=== PATIENT | female | born 1960 | race Caucasian/White ===

== ENCOUNTER 2018-07-07 09:46 | Emergency (ER) | payer BC ==
[~2018-07-07] VITALS: Ht 172.7 cm; Wt 68.0 kg
--- NOTE | 2018-07-07 10:26 | PHYS DOC ---
Past Medical History Past Medical History: Depression, Migraines Alcohol Use: None Drug Use: None Adult General Chief Complaint Chief Complaint: HEADACHE HPI HPI Patient is a 57 year old female who presents with complaining of migraine headache. Patient states she woke up at 2 AM because of frontal and left temporal headache as a constant throbbing and pressure pain and rated her pain 9 /10. Patient complaining of nausea and photophobia and left facial around her mouth numbness. Patient states she took Excedrin Migraine without improvement of her pain. She denies fever and chills, neck pain, focal weakness. Patient states the pain is like her other migraine headache but she never had numbness of face with her episodes of headache. Review of Systems Review of Systems Constitutional: Denies fever or chills [] Eyes: Denies change in visual acuity, redness, or eye pain [] HENT: Denies nasal congestion or sore throat [] Respiratory: Denies cough or shortness of breath [] Cardiovascular: No additional information not addressed in HPI [] GI: Denies abdominal pain, nausea, vomiting, bloody stools or diarrhea [] : Denies dysuria or hematuria [] Musculoskeletal: Denies back pain or joint pain [] Integument: Denies rash or skin lesions [] Neurologic: Reports sensory change and headache, denies focal weakness. Endocrine: Denies polyuria or polydipsia [] All other systems were reviewed and found to be within normal limits, except as documented in this note. Current Medications Current Medications Current Medications Medications (Trade) Dose Ordered Sig/Kuldeep Start Time Stop Time Status Last Admin Dose Admin Diphenhydramine HCl (Benadryl) 50 mg 1X ONCE 07/07/18 10:30 07/07/18 10:31 DC 07/07/18 10:45 50 MG Ketorolac Tromethamine (Toradol 30mg Vial) 30 mg 1X ONCE 07/07/18 10:30 07/07/18 10:31 DC 07/07/18 10:45 30 MG Ondansetron HCl (Zofran) 4 mg 1X ONCE 07/07/18 10:30 07/07/18 10:31 DC 07/07/18 10:45 4 MG Sodium Chloride 1,000 ml @ 1,000 mls/hr 1X ONCE 07/07/18 10:30 07/07/18 11:29 DC 07/07/18 10:45 1,000 MLS/HR Allergies Allergies Allergies Coded Allergies Type Severity Reaction Last Updated Verified No Known Drug Allergies 07/07/18 No Physical Exam Physical Exam Constitutional: Well developed, well nourished, mild distress, non-toxic appearance. [] HENT: Normocephalic, atraumatic, bilateral external ears normal, oropharynx moist, no oral exudates, nose normal. [] Eyes: PERRLA, EOMI, conjunctiva normal, no discharge. [] Neck: Normal range of motion, no tenderness, supple, no stridor. [] Cardiovascular:Heart rate regular rhythm, no murmur [] Lungs & Thorax: Bilateral breath sounds clear to auscultation [] Abdomen: Bowel sounds normal, soft, no tenderness, no masses, no pulsatile masses. [] Skin: Warm, dry, no erythema, no rash. [] Back: No tenderness, no CVA tenderness. [] Extremities: No tenderness, no cyanosis, no clubbing, ROM intact, no edema. [] Neurologic: Alert and oriented X 3, normal motor function, normal sensory function, no focal deficits noted. [] Psychologic: Affect normal, judgement normal, mood normal. [] Current Patient Data Vital Signs Vital Signs Date Time Temp Pulse Resp B/P (MAP) Pulse Ox O2 Delivery O2 Flow Rate FiO2 07/07/18 10:50 64 97 07/07/18 10:00 97.8 18 121/55 (77) 97.8 Lab Values Laboratory Tests Test 07/07/18 10:17 White Blood Count 5.5 x10^3/uL (4.0-11.0) Red Blood Count 4.38 x10^6/uL (3.50-5.40) Hemoglobin 13.8 g/dL (12.0-15.5) Hematocrit 40.0 % (36.0-47.0) Mean Corpuscular Volume 91 fL (79-100) Mean Corpuscular Hemoglobin 32 pg (25-35) Mean Corpuscular Hemoglobin Concent 35 g/dL (31-37) Red Cell Distribution Width 13.3 % (11.5-14.5) Platelet Count 278 x10^3/uL (140-400) Neutrophils (%) (Auto) 61 % (31-73) Lymphocytes (%) (Auto) 28 % (24-48) Monocytes (%) (Auto) 8 % (0-9) Eosinophils (%) (Auto) 2 % (0-3) Basophils (%) (Auto) 1 % (0-3) Neutrophils # (Auto) 3.3 x10^3uL (1.8-7.7) Lymphocytes # (Auto) 1.5 x10^3/uL (1.0-4.8) Monocytes # (Auto) 0.5 x10^3/uL (0.0-1.1) Eosinophils # (Auto) 0.1 x10^3/uL (0.0-0.7) Basophils # (Auto) 0.1 x10^3/uL (0.0-0.2) Sodium Level 142 mmol/L (136-145) Potassium Level 3.9 mmol/L (3.5-5.1) Chloride Level 105 mmol/L (98-107) Carbon Dioxide Level 24 mmol/L (21-32) Anion Gap 13 (6-14) Blood Urea Nitrogen 8 mg/dL (7-20) Creatinine 0.9 mg/dL (0.6-1.0) Estimated GFR (Cockcroft-Gault) 64.1 BUN/Creatinine Ratio 9 (6-20) Glucose Level 96 mg/dL (70-99) Calcium Level 8.9 mg/dL (8.5-10.1) Total Bilirubin 0.8 mg/dL (0.2-1.0) Aspartate Amino Transferase (AST) 22 U/L (15-37) Alanine Aminotransferase (ALT) 34 U/L (14-59) Alkaline Phosphatase 70 U/L (46-116) Total Protein 7.2 g/dL (6.4-8.2) Albumin 3.8 g/dL (3.4-5.0) Albumin/Globulin Ratio 1.1 (1.0-1.7) Laboratory Tests 07/07/18 10:17 Laboratory Tests 07/07/18 10:17 EKG EKG [] Radiology/Procedures Radiology/Procedures [facility] [address] [place] [address] IMAGING REPORT Signed PATIENT: NGUYEN SANFORD ACCOUNT: [id number] : 1960 LOCATION: ER AGE: 57 SEX: F EXAM STATUS: REG ER ORD. PHYSICIAN: KELLY ONTIVEROS MD REASON: headache PROCEDURE: CT HEAD WO CONTRAST CT Head W/O Contrast: History: HEADACHE, MIGRAINE TODAY Comparison: none Axial images were obtained without contrast. The alejandro and white matter appears normal and symmetrical for the patients age. There is no mass effect, extraaxial fluid collections or hydrocephalus. There is no gross bleed. There is no focal loss of alejandro-white matter distinction to suggest acute ischemia, i.e. stroke. Impression: No acute findings. RS Compliance Statement: One or more of the following individualized dose reduction techniques were utilized for this examination: 1. Automated exposure control 2. Adjustment of the mA and/or kV according to patient size 3. Use of iterative reconstruction technique Electronically signed by: Lázaro Birmingham III, MD (07/07/2018 10:51 AM) [id number] DICTATED and SIGNED BY: LÁZARO BIRMINGHAM III, MD DATE: 07/07/18 105 Course & Med Decision Making Course & Med Decision Making Pertinent Labs and Imaging studies reviewed. (See chart for details) Evaluation of patient in ER showed 57-year-old female patient with history of migraine headaches presented with complaining of headache since this morning. Patient had unremarkable physical exam without neuro deficit even complaining of paresthesia in left side of her mouth. CT and labs was unremarkable. Patient felt better with IV fluid, Benadryl, Toradol and Zofran. Plan discharge patient home to diagnose of migraine headache. Dragon Disclaimer Dragon Disclaimer This electronic medical record was generated, in whole or in part, using a voice recognition dictation system. Departure Departure Impression: Primary Impression: Migraine headache with aura Disposition: HOME, SELF-CARE (at 1148) Condition: IMPROVED Patient Instructions: Migraine Headache, Nausea, Adult Additional Instructions: Drink plenty of liquids Follow-up with your primary care physician in 3-5 days Return to ER if not getting better Scripts Ondansetron Hcl (ZOFRAN) 4 Mg Tablet 1 TAB PO PRN Q6-8HRS for nausea, #12 TAB Prov: KELLY ONTIVEROS MD 07/07/18 Butalbital/Aspirin/Caffeine (FIORINAL 50-325-40 MG CAPSULE) 1 Each Capsule 1 EACH PO QID PRN for HEADACHE, #20 CAP Prov: KELLY ONTIVEROS MD 07/07/18 Problem Qualifiers Primary Impression: Migraine headache with aura Status migrainosus presence: without status migrainosus Intractability: not intractable Qualified Codes: G43.109 - Migraine with aura, not intractable, without status migrainosus KELLY ONTIVEROS MD Jul 07, 2018 10:26
[2018-07-07] MEDS ORDERED: diphenhydrAMINE 50 MG/ML VIAL IVP ONE (10:30)
[2018-07-07] MEDS ORDERED: ONDANSETRON PF 4 MG/2 ML VIAL. IV ONE (10:30)
[2018-07-07] MEDS ORDERED: IV NORMAL SALINE 1000ML BAG 1,000 ML IV ONE (10:30)
[2018-07-07] MEDS ORDERED: KETOROLAC 30 MG/ML VIAL. IV ONE (10:30)
[2018-07-07 10:38] LABS: BASO # 0.1 x10^3/uL (0.0-0.2); BASO % 1 % (0-3); CALCIUM 8.9 mg/dL (8.5-10.1); CREATININE 0.9 mg/dL (0.6-1.0); EOS # 0.1 x10^3/uL (0.0-0.7); EOS % 2 % (0-3); GFR 64.1; HEMOGLOBIN 13.8 g/dL (12.0-15.5); LYMPH # 1.5 x10^3/uL (1.0-4.8); LYMPH % 28 % (24-48); MEAN CORPUSCULAR HEMOGLOBIN 32 pg (25-35); MEAN CORPUSCULAR HGB CONC 35 g/dL (31-37); MEAN CORPUSCULAR VOLUME 91 fL (79-100); MONO # 0.5 x10^3/uL (0.0-1.1); MONO % 8 % (0-9); NEUT # 3.3 x10^3uL (1.8-7.7); NEUT % 61 % (31-73); PLATELET COUNT 278 x10^3/uL (140-400); POTASSIUM 3.9 mmol/L (3.5-5.1); RED BLOOD COUNT 4.38 x10^6/uL (3.50-5.40); RED CELL DISTRIBUTION WIDTH 13.3 % (11.5-14.5); WHITE BLOOD COUNT 5.5 x10^3/uL (4.0-11.0)
[2018-07-07 10:50] LABS: ALBUMIN 3.8 g/dL (3.4-5.0); ALBUMIN/GLOBULIN RATIO 1.1 (1.0-1.7); TOTAL BILIRUBIN 0.8 mg/dL (0.2-1.0); TOTAL PROTEIN 7.2 g/dL (6.4-8.2)
--- NOTE | 2018-07-07 10:53 | RAD ---
CT Head W/O Contrast: History: HEADACHE, MIGRAINE TODAY Comparison: none Axial images were obtained without contrast. The alejandro and white matter appears normal and symmetrical for the patients age. There is no mass effect, extraaxial fluid collections or hydrocephalus. There is no gross bleed. There is no focal loss of alejandro-white matter distinction to suggest acute ischemia, i.e. stroke. Impression: No acute findings. RS Compliance Statement: One or more of the following individualized dose reduction techniques were utilized for this examination: 1. Automated exposure control 2. Adjustment of the mA and/or kV according to patient size 3. Use of iterative reconstruction technique Electronically signed by: Rowdy Rajan III, MD (07/07/2018 10:51 AM) [id number]
[2018-07-07] MEDS ORDERED: ONDA4TAB7 PO (11:50)
[2018-07-07] MEDS ORDERED: BUTA1CAP31 PO (11:50)
[2018-07-07 12:00] VITALS: BP 104/55
== END 2018-07-07 12:15 | disposition home or self-care (01) ==
LOC: ER 09:46 → EDBD 09:46 → ER 12:15
DX: G43.109 Migraine with aura, not intractable, without status migrainosus (principal); F32.9 Major depressive disorder, single episode, unspecified
CPT/HCPCS: 36415; 70450; 80053; 85025; 96374; 96375; 99285; J1200; J1885; J2405; J7030

== ENCOUNTER 2018-08-18 20:37 | Inpatient (IN) | payer BC ==
[~2018-08-18] VITALS: Ht 170.2 cm; Wt 76.7 kg
[~2018-08-18 20:37] MED LIST: BUTA1CAP31 PO; ONDA4TAB7 PO
[2018-08-18] MEDS ORDERED: ONDANSETRON PF 4 MG/2 ML VIAL. IV ONE (21:15)
[2018-08-18] MEDS ORDERED: PROCHLORPERAZINE 10 MG/2 ML VIAL. IV ONE ×2 (21:15)
[2018-08-18] MEDS ORDERED: diphenhydrAMINE 50 MG/ML VIAL IVP ONE ×2 (21:15)
[2018-08-18 21:17] LABS: BASO # 0.1 x10^3/uL (0.0-0.2); BASO % 1 % (0-3); EOS # 0.1 x10^3/uL (0.0-0.7); EOS % 2 % (0-3); HEMATOCRIT 40.5 % (36.0-47.0); HEMOGLOBIN 13.7 g/dL (12.0-15.5); LYMPH # 2.7 x10^3/uL (1.0-4.8); LYMPH % 38 % (24-48); MEAN CORPUSCULAR HEMOGLOBIN 31 pg (25-35); MEAN CORPUSCULAR HGB CONC 34 g/dL (31-37); MEAN CORPUSCULAR VOLUME 93 fL (79-100); MONO # 0.6 x10^3/uL (0.0-1.1); MONO % 8 % (0-9); NEUT # 3.7 x10^3uL (1.8-7.7); NEUT % 52 % (31-73); PLATELET COUNT 281 x10^3/uL (140-400); RED BLOOD COUNT 4.38 x10^6/uL (3.50-5.40); RED CELL DISTRIBUTION WIDTH 13.7 % (11.5-14.5); WHITE BLOOD COUNT 7.2 x10^3/uL (4.0-11.0)
[2018-08-18 21:24] LABS: PROTHROMBIN TIME PATIENT 12.8 SEC (11.7-14.0)
[2018-08-18 21:25] LABS: CALCIUM 9.3 mg/dL (8.5-10.1); GFR 56.6; POTASSIUM 3.3 mmol/L (3.5-5.1)
[2018-08-18] MEDS ORDERED: IOHEXOL 350 MG/ML 100 ML VIAL. IV ONE (21:30)
[2018-08-18] MEDS ORDERED: CONTRAST GIVEN. MC PRN (21:30)
[2018-08-18 21:31] LABS: ALBUMIN 3.7 g/dL (3.4-5.0); ALBUMIN/GLOBULIN RATIO 1.3 (1.0-1.7); TOTAL BILIRUBIN 0.6 mg/dL (0.2-1.0); TOTAL PROTEIN 6.6 g/dL (6.4-8.2)
--- NOTE | 2018-08-18 22:01 | HP ---
ADMIT DATE: 08/18/2018 CHIEF COMPLAINT: Left-sided weakness, slurred speech, nausea, headache. HISTORY OF PRESENT ILLNESS: The patient is a pleasant middle-aged female who has chronic migraines and presented with some stroke symptoms. We are concerned she could be having an actual stroke. We did an initial CAT scan; it does not show any acute changes. We are going to get a CT angiography as well. She rates her symptoms at 10/10. She has associated nausea. I have discussed the case with ER physician. We are going to admit the patient and consult Neurology. PAST MEDICAL HISTORY: Chronic migraines. ALLERGIES: None. FAMILY HISTORY: Migraines. SOCIAL HISTORY: She is , does not drink, smoke or take drugs. MEDICATIONS: Reviewed, please refer to the MRAD. REVIEW OF SYSTEMS: GENERAL: No history of weight change, weakness or fevers. SKIN: No bruising, hair changes or rashes. EYES: No blurred, double or loss of vision. NOSE AND THROAT: No history of nosebleeds, hoarseness or sore throat. HEART: No history of palpitations, chest pain or shortness of breath on exertion. LUNGS: Denies cough, hemoptysis, wheezing or shortness of breath. GASTROINTESTINAL: She complains of nausea. GENITOURINARY: No history of frequency, urgency, hesitancy or nocturia. NEUROLOGIC: She complains of left-sided weakness, although it is improving. PSYCHIATRIC: No history of panic, anxiety or depression. ENDOCRINE: No history of heat or cold intolerance, polyuria or polydipsia. EXTREMITIES: Denies muscle weakness, joint pain, pain on walking or stiffness. PHYSICAL EXAMINATION: VITAL SIGNS: Temperature afebrile, pulse 98, respirations 18, blood pressure 133/90. GENERAL: She is awake, appears very nauseated. Her is present. HEART: Normal S1, S2. LUNGS: Clear to auscultation. ABDOMEN: Soft, positive bowel sounds. EXTREMITIES: Trace edema. SKIN: No rash. ENDOCRINE: No thyromegaly. LYMPHATICS: No cervical nodes. HEMATOPOIETIC: No bruising. PSYCHIATRIC: She is depressed. NEUROLOGICAL: She has left-sided weakness. LABORATORY DATA: Hematology is normal. Electrolytes are normal except for potassium of 3.3 and a glucose of 100. Her INR is 1. CT of the brain official report is pending, but by my eye does not show any acute changes. CT angiography of the brain is also pending. ASSESSMENT AND PLAN: Stroke symptoms, hypokalemia, nausea, possible migraine symptoms. The patient has been admitted. We are consulting Neurology. We will continue home meds. Await our CAT scan reports, reevaluate in the morning. For now, we will order PT, OT to begin tomorrow assuming she can participate and that she is improving. Full code. DVT prophylaxis. JEANE SANFORD DO DR: ZENON/yanique JOB#: [id number] / [id number]
--- NOTE | 2018-08-18 22:22 | PHYS DOC ---
Past Medical History Past Medical History: Depression, Migraines Past Surgical History: Appendectomy, Cholecystectomy, Hysterectomy, Tonsillecto my, Other Additional Past Surgical Histo: Left knee, back, right foot Alcohol Use: Occasionally Drug Use: None Adult General Chief Complaint Chief Complaint: NEURO SYMPTOMS/DEFICITS HPI HPI Patient is a 58 year old female brought in by ambulance with stroke alert apparently last seen normal she says symptoms started at 2 PM at the latest maybe earlier she was doing laundry she has had a headache throbbing left-sided head severe associated with nausea and photophobia similar to prior migraines for the last month but worse 3 days ago she has had CT scan she said she had an MRI/MRA last week at an outside facility but she does not recall the location I don't have access to that report at this time she said that there was a "questionable" finding. She does not have any more information on that at this time. Initially the paramedics said the last seen normal was at 7:50 PM but in fact that was when the came back in from home he was cleaning up after the report to in fact the time of onset was 2 PM according to the patient Review of Systems Review of Systems Cardiovascular: No additional information not addressed in HPI [] GI: Denies abdominal pain, nausea, vomiting, bloody stools or diarrhea [] : Denies dysuria or hematuria [] Musculoskeletal: Denies back pain or joint pain [] I All other systems were reviewed and found to be within normal limits, except as documented in this note. Current Medications Current Medications Current Medications Medications (Trade) Dose Ordered Sig/Kuldeep Start Time Stop Time Status Last Admin Dose Admin Aspirin (Children'S Aspirin) 324 mg 1X ONCE 08/18/18 22:15 08/18/18 22:16 UNV Diphenhydramine HCl (Benadryl) 25 mg 1X ONCE 08/18/18 21:15 08/18/18 21:18 DC Info (CONTRAST GIVEN -- Rx MONITORING) 1 each PRN DAILY PRN 08/18/18 21:30 08/20/18 21:29 Iohexol (Omnipaque 350 Mg/ml) 100 ml 1X ONCE 08/18/18 21:30 08/18/18 21:31 DC 08/18/18 21:33 100 ML Ondansetron HCl (Zofran) 4 mg 1X ONCE 08/18/18 21:15 08/18/18 21:18 DC Prochlorperazine Edisylate (Compazine) 10 mg 1X ONCE 08/18/18 21:15 08/18/18 21:18 DC Allergies Allergies Allergies Coded Allergies Type Severity Reaction Last Updated Verified meperidine Allergy Severe Anaphylaxis 08/18/18 Yes gabapentin Allergy Intermediate Hives 08/18/18 Yes Physical Exam Physical Exam Constitutional: Well developed, well nourished, no acute distress, non-toxic appearance. [] HENT: Normocephalic, atraumatic, bilateral external ears normal, oropharynx moist, no oral exudates, nose normal. [] Eyes: PERRLA, EOMI, conjunctiva normal, no discharge. [] Neck: Normal range of motion, no tenderness, supple, no stridor. [] Cardiovascular:Heart rate regular rhythm, no murmur [] Lungs & Thorax: Bilateral breath sounds clear to auscultation [] Abdomen: Bowel sounds normal, soft, no tenderness, no masses, no pulsatile masses. [] Skin: Warm, dry, no erythema, no rash. [] Back: No tenderness, no CVA tenderness. [] Extremities: No tenderness, no cyanosis, no clubbing, ROM intact, no edema. [] Neurologic: See stroke scale. Current Patient Data Vital Signs Vital Signs Date Time Temp Pulse Resp B/P (MAP) Pulse Ox O2 Delivery O2 Flow Rate FiO2 08/18/18 20:37 98.6 64 17 118/56 (76) 100 Room Air 98.6 Lab Values Laboratory Tests Test 08/18/18 20:49 White Blood Count 7.2 x10^3/uL (4.0-11.0) Red Blood Count 4.38 x10^6/uL (3.50-5.40) Hemoglobin 13.7 g/dL (12.0-15.5) Hematocrit 40.5 % (36.0-47.0) Mean Corpuscular Volume 93 fL (79-100) Mean Corpuscular Hemoglobin 31 pg (25-35) Mean Corpuscular Hemoglobin Concent 34 g/dL (31-37) Red Cell Distribution Width 13.7 % (11.5-14.5) Platelet Count 281 x10^3/uL (140-400) Neutrophils (%) (Auto) 52 % (31-73) Lymphocytes (%) (Auto) 38 % (24-48) Monocytes (%) (Auto) 8 % (0-9) Eosinophils (%) (Auto) 2 % (0-3) Basophils (%) (Auto) 1 % (0-3) Neutrophils # (Auto) 3.7 x10^3uL (1.8-7.7) Lymphocytes # (Auto) 2.7 x10^3/uL (1.0-4.8) Monocytes # (Auto) 0.6 x10^3/uL (0.0-1.1) Eosinophils # (Auto) 0.1 x10^3/uL (0.0-0.7) Basophils # (Auto) 0.1 x10^3/uL (0.0-0.2) Prothrombin Time 12.8 SEC (11.7-14.0) Prothrombin Time INR 1.0 (0.8-1.1) Sodium Level 141 mmol/L (136-145) Potassium Level 3.3 mmol/L (3.5-5.1) L Chloride Level 104 mmol/L (98-107) Carbon Dioxide Level 22 mmol/L (21-32) Anion Gap 15 (6-14) H Blood Urea Nitrogen 10 mg/dL (7-20) Creatinine 1.0 mg/dL (0.6-1.0) Estimated GFR (Cockcroft-Gault) 56.6 BUN/Creatinine Ratio 10 (6-20) Glucose Level 100 mg/dL (70-99) H Calcium Level 9.3 mg/dL (8.5-10.1) Total Bilirubin 0.6 mg/dL (0.2-1.0) Aspartate Amino Transferase (AST) 22 U/L (15-37) Alanine Aminotransferase (ALT) 36 U/L (14-59) Alkaline Phosphatase 73 U/L (46-116) Troponin I Quantitative < 0.017 ng/mL (0.000-0.055) Total Protein 6.6 g/dL (6.4-8.2) Albumin 3.7 g/dL (3.4-5.0) Albumin/Globulin Ratio 1.3 (1.0-1.7) Laboratory Tests 08/18/18 20:49 Laboratory Tests 08/18/18 20:49 EKG EKG []Normal sinus rhythm rate 61 no acute ischemic changes noted interpreted by me time of encounter Radiology/Procedures Radiology/Procedures [] Impressions: CT head negative acute. CT CT angiogram wet read from the radiologist Dr. Modi at 10:15 PM PACS is down was negative acute Course & Med Decision Making Course & Med Decision Making Pertinent Labs and Imaging studies reviewed. (See chart for details) []NIH stroke scale is a 7 however patient has a long history of migraine she is a 58-year-old female she's had migraine for 1 month worse for 3 days and now 6 hours of neurologic symptoms not a TPA candidate due to the time of onset. CT CT angiogram was negative for acute process according to the radiologist's final read is not in the system right now due to PACs failure I spoke with Dr. Velasco , patient has right face and then left arm and leg and also mild involvement of the right arm this does not really classify to a specific di stribution. Recommends aspirin admitted MRI in the morning I spoke with Dr. Lakhani as well who is seen this patient in the emergency room. I think is more likely to be migraine probably due to her previous history but we will admit for observation and further treatment as noted Dragon Disclaimer Dragon Disclaimer This electronic medical record was generated, in whole or in part, using a voice recognition dictation system. Departure Departure Impression: Primary Impression: Left arm weakness Additional Impression: Headache Disposition: ADMITTED INPATIENT Admitting Physician: JAQUAN Condition: STABLE Referrals: JELANI ONEAL MD (PCP) NIHSS Stroke Scale NIH Stroke Scale: NIH Stroke Scale Response (Comments) Value Level of Consciousness: 0 Alert/Responsive 0 LOC Questions: 0 Answers both correctly 0 LOC Commands: 0 Performs both tasks 0 Best Gaze: 0 Normal 0 Visual: 0 No visual loss 0 Facial Palsy: 3 Complete paralysis 3 Motor - Left Arm 1 Drifts, but can hold 1 Motor - Right Arm 1 Drifts but can hold 1 Motor - Left Leg 1 Drift but can hold 1 Motor: Right Leg 0 No drift 0 Limb Ataxia: 0 Absent 0 Sensory: 0 No loss 0 Best Language: 0 Normal 0 Dysathria: 1 Mild to moderate 1 Extinction and Inattention: 0 Normal 0 Total 7 Problem Qualifiers OTTO GODOY MD Aug 18, 2018 22:22
[2018-08-18] MEDS ORDERED: ASPIRIN CHEWABLE 81 MG TABLET. PO ONE (22:30)
[2018-08-18 22:45] LABS: BILIRUBIN,URINE NEGATIVE (NEG); CLARITY,URINE CLEAR; COLOR,URINE YELLOW; NITRITE,URINE NEGATIVE (NEG); PROTEIN,URINE NEGATIVE (NEG-TRACE); UROBILINOGEN,URINE 0.2 mg/dL (0.2 mg/dL)
[2018-08-18] MEDS ORDERED: PROCHLORPERAZINE 10 MG/2 ML VIAL. IV PRN (22:45)
[2018-08-18] MEDS ORDERED: ASPIRIN RECTAL 300 MG SUPP. PR ONE (22:45)
[2018-08-18 22:49] LABS: BACTERIA,URINE FEW /HPF (0-FEW); RBC,URINE 0 /HPF (0-2); WBC,URINE OCC /HPF (0-4)
[2018-08-18 22:50] LABS: SQUAMOUS EPITHELIAL CELL,UR FEW /LPF
[2018-08-19 00:05] VITALS: BP 99/44
[2018-08-19 03:46] VITALS: BP 90/37
--- NOTE | 2018-08-19 06:41 | EKG ---
[facility] [address] [place] [address] Test Date: 2018-08-18 Test Time: 20:53:54 Pat Name: NGUYEN SANFORD Department: Room: Gender: F [employer]: : 1960 Requested By: OTTO GODOY Order Number: [id number] Reading MD: Measurements Intervals [place] Rate: 61 P: 0 UT: 134 QRS: 2 QRSD: 86 T: 25 QT: 474 QTc: 484 Interpretive Statements SINUS RHYTHM PROLONGED QT NO SPECIFIC ECG ABNORMALITIES RI6.01 Unconfirmed report No previous ECG available for comparison
[2018-08-19 07:11] VITALS: BP 102/42
[2018-08-19] MEDS ORDERED: METOPROLOL SUCC 24HR ER 25 MG TAB.ER.24H. PO SCH (09:00)
--- NOTE | 2018-08-19 09:14 | NUR ---
Bedside Swallow Evaluation completed. Please refer to full report for additional details. Impressions: Functional oropharyngeal swallow w/o s/s aspiration for trials of thin liquids, puree and solids. Pt appears at low risk of aspiration for all consistencies of PO w/ general swallow precautions. Speech/language/cognition screen and appears generally WFL w/ pt able to recall 5 words immediately and delayed, follow complex directions, oriented x4. Recommendations: Regular diet w/ thin liquids. General swallow precautions. No additional ST services indicated at this time.
[2018-08-19] MEDS ORDERED: ONDA4TAB7 PO (09:25)
[2018-08-19] MEDS ORDERED: FLUO40CA2 PO (09:25)
[2018-08-19] MEDS ORDERED: BUTA1CAP57 PO (09:25)
--- NOTE | 2018-08-19 09:27 | RAD ---
PQRS Compliance Statement: One or more of the following individualized dose reduction techniques were utilized for this examination: 1. Automated exposure control 2. Adjustment of the mA and/or kV according to patient size 3. Use of iterative reconstruction technique CT angiogram head and neck with contrast. Clinical Indication: Slurred speech. Right face and left arm weakness. Comparison: CT head without contrast, earlier same day. Technique: Helical CT imaging from inferior to the aortic arch to the skull vertex is performed after 100 cc of Omnipaque [address] angiogram protocol. 3-D MIP reconstructions of the cervical carotid arteries and [place] are performed. PQRS Compliance Statement - Stenosis calculations for CT, MR and conventional angiography are based upon measurement of the distal ICA diameter in accordance with the NASCET methodology. Stenosis calculations for carotid ultrasound studies are derived from validated velocity criteria which are known to correlate with the NASCET methodology. Findings: Aortic arch branches are patent. Common carotid arteries are patent. Bifurcations are normal. Cervical internal carotid arteries are patent. Cervical vertebral arteries are patent. No evidence of dissection. Distal vertebral arteries are codominant. The basilar artery is patent. The posterior cerebral arteries are patent. Superior cerebellar arteries are patent. Distal internal carotid arteries are patent. Small caliber anterior communicating artery. The anterior circulation is intact. No focal stenosis or occlusion or intracranial aneurysm is identified. Dural venous sinuses are patent. No abnormal enhancement in the brain parenchyma. There is no cervical adenopathy. The upper lungs are clear. Cervical spine alignment is maintained. IMPRESSION: Normal CTA head and neck findings. Preliminary results called to Dr. Zapata in the ED at 10:13 PM. Electronically signed by: Virgilio Modi MD (08/19/2018 9:24 AM) [id number]
--- NOTE | 2018-08-19 09:30 | RAD ---
CT HEAD INDICATION: Code stroke, slurred speech COMPARISON: None Available. Exposure: One or more of the following individualized dose reduction techniques were utilized for this examination: 1. Automated exposure control 2. Adjustment of the mA and/or kV according to patient size 3. Use of iterative reconstruction technique TECHNIQUE: 5 mm contiguous axial images were obtained from the skull base to the vertex in both bone and soft tissue algorithm. Please note that this report was dictated the next day as the PACS system and the dictation system was down under downtime. Preliminary read was provided to the ordering physician immediately at the conclusion of the exam. FINDINGS: No abnormal attenuation within the brain parenchyma. No evidence of acute intracranial hemorrhage. No extra-axial fluid collections. No mass effect or midline shift. Ventricular size is appropriate. Basal cisterns are patent. No fractures identified.[place]-white differentiation is preserved.Globes and orbits are within normal limits. Paranasal sinuses and mastoid air cells are clear. IMPRESSION: No acute intracranial findings Report called at 9:00 PM to ordering physician. Electronically signed by: Johny Etienne MD (08/19/2018 9:27 AM) [place] [id number]
--- NOTE | 2018-08-19 09:49 | PDOC2 ---
NEUROLOGY CONSULT Date of Admission Date of Admission DATE: 08/19/18 TIME: 08:59 Reason for Consult Reason for Consult: stroke symptoms, migraine Referring Physician Referring Physician: Dr. Barcenas PCP: Dr. Dobbins History of Present Illness History of Present Illness The patient is a 58-year-old right-handed female brought in by ambulance with stroke alert. Symptoms started about 2 PM yesterday. She is had throbbing migraine type headaches for the past month. She was in [place] and to department a month ago and received a prescription for Fiorinal. She did have the same headache yesterday with nausea and photophonophobia and started noticing some numbness on the right side of the face, left arm, and weakness in the right arm and leg. She may have had some trouble speaking.NIH score was 7 due to facial weakness, bilateral arm drift, left leg drift, and dysarthria. I discussed the case with Dr. Haro and we agree that she was not an alteplase candidate because symptoms were not localizing and had started at 2 PM, nearly 6 hours before she presented to the emergency department. The patient is feeling fine today. She had MRI/MRA by her primary physician, Dr. Dobbins. She was told these were abnormal. I called Dr. 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 He was planning to do a CT angiogram. Past Medical History CENTRAL NERVOUS SYSTEM: Migraine Psych: Depression (Not currently) Past Surgical History Past Surgical History: Appendectomy, Cholecystectomy, Tonsillectomy, Hysterectomy, Other ( left knee, right foot) Family History Family History: No pertinent hx Social History Social History , business banking officer, rare alcohol, no tobacco Current Medications Current Medications Current Medications Diphenhydramine HCl (Benadryl) 25 mg 1X ONCE IVP Last administered on 08/18/18at 21:30; Start 08/18/18 at 21:15; Stop 08/18/18 at 21:18; Status DC Prochlorperazine Edisylate (Compazine) 5 mg 1X ONCE IV Last administered on 08/18/18at 21:29; Start 08/18/18 at 21:15; Stop 08/18/18 at 21:18; Status DC Ondansetron HCl (Zofran) 4 mg 1X ONCE IV ; Start 08/18/18 at 21:15; Stop 08/18/18 at 21:18; Status DC Iohexol (Omnipaque 350 Mg/ml) 100 ml 1X ONCE IV Last administered on 08/18/18at 21:33; Start 08/18/18 at 21:30; Stop 08/18/18 at 21:31; Status DC Prochlorperazine Edisylate (Compazine) 10 mg 1X ONCE IV ; Start 08/18/18 at 21:15; Stop 08/18/18 at 21:18; Status DC Diphenhydramine HCl (Benadryl) 25 mg 1X ONCE IVP ; Start 08/18/18 at 21:15; Stop 08/18/18 at 21:18; Status DC Info (CONTRAST GIVEN -- Rx MONITORING) 1 each PRN DAILY PRN MC SEE COMMENTS; Start 08/18/18 at 21:30; Stop 08/20/18 at 21:29 Aspirin (Children'S Aspirin) 324 mg 1X ONCE PO ; Start 08/18/18 at 22:30; Stop 08/18/18 at 22:31; Status DC Aspirin (Aspirin Rectal Supp) [address] Last administered on 08/18/18at 22:45; Start 08/18/18 at 22:45; Stop 08/18/18 at 22:46; Status DC Prochlorperazine Edisylate (Compazine) 10 mg PRN Q4HRS PRN IV VOMITING; Start 08/18/18 at 22:45 Metoprolol Succinate (Toprol Xl) 25 mg DAILY PO ; Start 08/19/18 at 09:00; Stop 08/22/18 at 09:00 Metoprolol Succinate (Toprol Xl) 50 mg DAILY PO ; Start 08/23/18 at 09:00 Active Scripts Active Zofran (Ondansetron Hcl) 4 Mg Tablet 1 Tab PO PRN Q6-8HRS Fiorinal 50-325-40 Mg Capsule (Butalbital/Aspirin/Caffeine) 1 Each Capsule 1 Each PO QID PRN Allergies Allergies: Coded Allergies: meperidine (Verified Allergy, Severe, Anaphylaxis , 08/18/18) gabapentin (Verified Allergy, Intermediate, Hives , 08/18/18) ROS Review of System Negative for fever, chills, weight loss, shortness of breath, chest pain, indigestion, hematochezia, melena, and dysuria. Full 14-point review of systems is negative. Physical Exam Physical Examination General: Well-developed, well-nourished white female in no acute distress HEENT: Normocephalic andatraumatic. Temporal arteriespulsatile and nontender. Neck: Supple without bruit, no meningismus Musculoskeletal: Stability:see neurologic. Gait exam:see neurologic. Tone:see neurologic.Strength:see neurologic. Neurological: Mental Status:intact, orientation, memory, attention span/concentration, language, fund of knowledge normal. Cranial Nerves:Pupils equal and reactive to light, extraocular movements areintact, visual smart are full to confrontation. Facial sensation is normal. There is no facial asymmetry. Vestibulo-ocular reflex is intact. Palate elevates and tongue protrudes in midline. All other cranial related problems are negative except as mentioned before.Reflexes:2+ and symmetric with flexor plantar responses. Motor:5/5 strength with normal tone and bulk. Coordination:Finger-nose finger and gbls-yq-wjfe testing are normal. Rapid alternating movements and fine finger movements are intact. Gait:Normal, including tandem. Sensory:Normal pinprick, vibration, light touch, proprioception. Vitals VITALS Vital Signs Date Time Temp Pulse Resp B/P (MAP) Pulse Ox O2 Delivery O2 Flow Rate FiO2 08/19/18 07:11 98.3 56 20 102/42 (62) 96 Room Air 98.3 Labs Labs Laboratory Tests Test 08/18/18 20:49 08/18/18 22:35 White Blood Count 7.2 x10^3/uL (4.0-11.0) Red Blood Count 4.38 x10^6/uL (3.50-5.40) Hemoglobin 13.7 g/dL (12.0-15.5) Hematocrit 40.5 % (36.0-47.0) Mean Corpuscular Volume 93 fL (79-100) Mean Corpuscular Hemoglobin 31 pg (25-35) Mean Corpuscular Hemoglobin Concent 34 g/dL (31-37) Red Cell Distribution Width 13.7 % (11.5-14.5) Platelet Count 281 x10^3/uL (140-400) Neutrophils (%) (Auto) 52 % (31-73) Lymphocytes (%) (Auto) 38 % (24-48) Monocytes (%) (Auto) 8 % (0-9) Eosinophils (%) (Auto) 2 % (0-3) Basophils (%) (Auto) 1 % (0-3) Neutrophils # (Auto) 3.7 x10^3uL (1.8-7.7) Lymphocytes # (Auto) 2.7 x10^3/uL (1.0-4.8) Monocytes # (Auto) 0.6 x10^3/uL (0.0-1.1) Eosinophils # (Auto) 0.1 x10^3/uL (0.0-0.7) Basophils # (Auto) 0.1 x10^3/uL (0.0-0.2) Prothrombin Time 12.8 SEC (11.7-14.0) Prothromb Time International Ratio 1.0 (0.8-1.1) Sodium Level 141 mmol/L (136-145) Potassium Level 3.3 mmol/L (3.5-5.1) Chloride Level 104 mmol/L (98-107) Carbon Dioxide Level 22 mmol/L (21-32) Anion Gap 15 (6-14) Blood Urea Nitrogen 10 mg/dL (7-20) Creatinine 1.0 mg/dL (0.6-1.0) Estimated GFR (Cockcroft-Gault) 56.6 BUN/Creatinine Ratio 10 (6-20) Glucose Level 100 mg/dL (70-99) Calcium Level 9.3 mg/dL (8.5-10.1) Total Bilirubin 0.6 mg/dL (0.2-1.0) Aspartate Amino Transf (AST/SGOT) 22 U/L (15-37) Alanine Aminotransferase (ALT/SGPT) 36 U/L (14-59) Alkaline Phosphatase 73 U/L (46-116) Troponin I Quantitative < 0.017 ng/mL (0.000-0.055) Total Protein 6.6 g/dL (6.4-8.2) Albumin 3.7 g/dL (3.4-5.0) Albumin/Globulin Ratio 1.3 (1.0-1.7) Urine Collection Type Unknown Urine Color Yellow Urine Clarity Clear Urine pH 8.0 Urine Specific [place] 1.020 Urine Protein Negative mg/dL (NEG-TRACE) Urine Glucose (UA) Negative mg/dL (NEG) Urine Ketones (Stick) Negative mg/dL (NEG) Urine Blood Negative (NEG) Urine Nitrite Negative (NEG) Urine Bilirubin Negative (NEG) Urine Urobilinogen Dipstick 0.2 mg/dL (0.2 mg/dL) Urine Leukocyte Esterase Negative (NEG) Urine RBC 0 /HPF (0-2) Urine WBC Occ /HPF (0-4) Urine Squamous Epithelial Cells Few /LPF Urine Bacteria Few /HPF (0-FEW) Urine Mucus Slight /LPF Laboratory Tests Test 08/18/18 20:49 08/18/18 22:35 White Blood Count 7.2 x10^3/uL (4.0-11.0) Red Blood Count 4.38 x10^6/uL (3.50-5.40) Hemoglobin 13.7 g/dL (12.0-15.5) Hematocrit 40.5 % (36.0-47.0) Mean Corpuscular Volume 93 fL (79-100) Mean Corpuscular Hemoglobin 31 pg (25-35) Mean Corpuscular Hemoglobin Concent 34 g/dL (31-37) Red Cell Distribution Width 13.7 % (11.5-14.5) Platelet Count 281 x10^3/uL (140-400) Neutrophils (%) (Auto) 52 % (31-73) Lymphocytes (%) (Auto) 38 % (24-48) Monocytes (%) (Auto) 8 % (0-9) Eosinophils (%) (Auto) 2 % (0-3) Basophils (%) (Auto) 1 % (0-3) Neutrophils # (Auto) 3.7 x10^3uL (1.8-7.7) Lymphocytes # (Auto) 2.7 x10^3/uL (1.0-4.8) Monocytes # (Auto) 0.6 x10^3/uL (0.0-1.1) Eosinophils # (Auto) 0.1 x10^3/uL (0.0-0.7) Basophils # (Auto) 0.1 x10^3/uL (0.0-0.2) Prothrombin Time 12.8 SEC (11.7-14.0) Prothromb Time International Ratio 1.0 (0.8-1.1) Sodium Level 141 mmol/L (136-145) Potassium Level 3.3 mmol/L (3.5-5.1) Chloride Level 104 mmol/L (98-107) Carbon Dioxide Level 22 mmol/L (21-32) Anion Gap 15 (6-14) Blood Urea Nitrogen 10 mg/dL (7-20) Creatinine 1.0 mg/dL (0.6-1.0) Estimated GFR (Cockcroft-Gault) 56.6 BUN/Creatinine Ratio 10 (6-20) Glucose Level 100 mg/dL (70-99) Calcium Level 9.3 mg/dL (8.5-10.1) Total Bilirubin 0.6 mg/dL (0.2-1.0) Aspartate Amino Transf (AST/SGOT) 22 U/L (15-37) Alanine Aminotransferase (ALT/SGPT) 36 U/L (14-59) Alkaline Phosphatase 73 U/L (46-116) Troponin I Quantitative < 0.017 ng/mL (0.000-0.055) Total Protein 6.6 g/dL (6.4-8.2) Albumin 3.7 g/dL (3.4-5.0) Albumin/Globulin Ratio 1.3 (1.0-1.7) Urine Collection Type Unknown Urine Color Yellow Urine Clarity Clear Urine pH 8.0 Urine Specific [place] 1.020 Urine Protein Negative mg/dL (NEG-TRACE) Urine Glucose (UA) Negative mg/dL (NEG) Urine Ketones (Stick) Negative mg/dL (NEG) Urine Blood Negative (NEG) Urine Nitrite Negative (NEG) Urine Bilirubin Negative (NEG) Urine Urobilinogen Dipstick 0.2 mg/dL (0.2 mg/dL) Urine Leukocyte Esterase Negative (NEG) Urine RBC 0 /HPF (0-2) Urine WBC Occ /HPF (0-4) Urine Squamous Epithelial Cells Few /LPF Urine Bacteria Few /HPF (0-FEW) Urine Mucus Slight /LPF Images Images CT angiogram head and neck with contrast. Clinical Indication: Slurred speech. Right face and left arm weakness. Comparison: CT head without contrast, earlier same day. Technique: Helical CT imaging from inferior to the aortic arch to the skull vertex is performed after 100 cc of Omnipaque [address] angiogram protocol. 3-D MIP reconstructions of the cervical carotid arteries and [place] are performed. PQRS Compliance Statement - Stenosis calculations for CT, MR and conventional angiography are based upon measurement of the distal ICA diameter in accordance with the NASCET methodology. Stenosis calculations for carotid ultrasound studies are derived from validated velocity criteria which are known to correlate with the NASCET methodology. Findings: Aortic arch branches are patent. Common carotid arteries are patent. Bifurcations are normal. Cervical internal carotid arteries are patent. Cervical vertebral arteries are patent. No evidence of dissection. Distal vertebral arteries are codominant. The basilar artery is patent. The posterior cerebral arteries are patent. Superior cerebellar arteries are patent. Distal internal carotid arteries are patent. Small caliber anterior communicating artery. The anterior circulation is intact. No focal stenosis or occlusion or intracranial aneurysm is identified. Dural venous sinuses are patent. No abnormal enhancement in the brain parenchyma. There is no cervical adenopathy. The upper lungs are clear. Cervical spine alignment is maintained. IMPRESSION: Normal CTA head and neck findings. CT HEAD INDICATION: Code stroke, slurred speech COMPARISON: None Available. Exposure: One or more of the following individualized dose reduction techniques were utilized for this examination: 1. Automated exposure control 2. Adjustment of the mA and/or kV according to patient size 3. Use of iterative reconstruction technique TECHNIQUE: 5 mm contiguous axial images were obtained from the skull base to the vertex in both bone and soft tissue algorithm. Please note that this report was dictated the next day as the PACS system and the dictation system was down under downtime. Preliminary read was provided to the ordering physician immediately at the conclusion of the exam. FINDINGS: No abnormal attenuation within the brain parenchyma. No evidence of acute intracranial hemorrhage. No extra-axial fluid collections. No mass effect or midline shift. Ventricular size is appropriate. Basal cisterns are patent. No fractures identified.[place]-white differentiation is preserved.Globes and orbits are within normal limits. Paranasal sinuses and mastoid air cells are clear. IMPRESSION: No acute intracranial findings Assessment/Plan Assessment/Plan Impression: She did not have a stroke or transient ischemic attack, symptoms and signs are non-localizing and entirely explainable by migraine phenomenon. Her outside MR angiogram raised the possibility of an aneurysm, the CT angiogram last night showed no such finding. Recommendations: MRI the brain No need for the rest of the stroke pathway as she did not have a stroke. Continue PRN Fiorinal at home Add metoprolol, 25 mg daily for 4 days and then 50 mg a day after that for migraine prevention, discussed side effects. Okay for discharge later today. I also discussed findings with Dr. Dobbins. Thank you for letting me help with the patient's care. THOM FIORE MD Aug 19, 2018 09:48
[2018-08-19] MEDS ORDERED: BUTALB/APAP/CAFEIN 50/325/40MG TABLET. PO PRN (10:15)
[2018-08-19] MEDS ORDERED: ONDANSETRON ODT 4 MG TAB.RAPDIS. PO PRN (10:15)
[2018-08-19] MEDS ORDERED: METO-239 PO (10:20)
[2018-08-19] MEDS ORDERED: METO50TA4 PO (10:20)
--- NOTE | 2018-08-19 10:25 | PDOC3 ---
Discharge Summary Visit Information Date of Admission: Aug 18, 2018 Date of Discharge: Aug 19, 2018 Admitting Diagnosis: sudden weakness, difficulty walking Final Diagnosis Stroke symptoms, not a CVA, hypokalemia, status migranosa - weakness from migrane Problems Medical Problems: (1) Headache Status: Acute (2) Left arm weakness Status: Acute Brief Hospital Course Allergies Allergies Coded Allergies Type Severity Reaction Last Updated Verified meperidine Allergy Severe Anaphylaxis 08/18/18 Yes gabapentin Allergy Intermediate Hives 08/18/18 Yes Vital Signs Vital Signs Date Time Temp Pulse Resp B/P (MAP) Pulse Ox O2 Delivery O2 Flow Rate FiO2 08/19/18 09:30 70 107/49 08/19/18 07:11 98.3 20 96 Room Air 98.3 Lab Results Laboratory Tests Test 08/18/18 20:49 08/18/18 22:35 White Blood Count 7.2 x10^3/uL (4.0-11.0) Red Blood Count 4.38 x10^6/uL (3.50-5.40) Hemoglobin 13.7 g/dL (12.0-15.5) Hematocrit 40.5 % (36.0-47.0) Mean Corpuscular Volume 93 fL (79-100) Mean Corpuscular Hemoglobin 31 pg (25-35) Mean Corpuscular Hemoglobin Concent 34 g/dL (31-37) Red Cell Distribution Width 13.7 % (11.5-14.5) Platelet Count 281 x10^3/uL (140-400) Neutrophils (%) (Auto) 52 % (31-73) Lymphocytes (%) (Auto) 38 % (24-48) Monocytes (%) (Auto) 8 % (0-9) Eosinophils (%) (Auto) 2 % (0-3) Basophils (%) (Auto) 1 % (0-3) Neutrophils # (Auto) 3.7 x10^3uL (1.8-7.7) Lymphocytes # (Auto) 2.7 x10^3/uL (1.0-4.8) Monocytes # (Auto) 0.6 x10^3/uL (0.0-1.1) Eosinophils # (Auto) 0.1 x10^3/uL (0.0-0.7) Basophils # (Auto) 0.1 x10^3/uL (0.0-0.2) Prothrombin Time 12.8 SEC (11.7-14.0) Prothromb Time International Ratio 1.0 (0.8-1.1) Sodium Level 141 mmol/L (136-145) Potassium Level 3.3 mmol/L (3.5-5.1) Chloride Level 104 mmol/L (98-107) Carbon Dioxide Level 22 mmol/L (21-32) Anion Gap 15 (6-14) Blood Urea Nitrogen 10 mg/dL (7-20) Creatinine 1.0 mg/dL (0.6-1.0) Estimated GFR (Cockcroft-Gault) 56.6 BUN/Creatinine Ratio 10 (6-20) Glucose Level 100 mg/dL (70-99) Calcium Level 9.3 mg/dL (8.5-10.1) Total Bilirubin 0.6 mg/dL (0.2-1.0) Aspartate Amino Transf (AST/SGOT) 22 U/L (15-37) Alanine Aminotransferase (ALT/SGPT) 36 U/L (14-59) Alkaline Phosphatase 73 U/L (46-116) Troponin I Quantitative < 0.017 ng/mL (0.000-0.055) Total Protein 6.6 g/dL (6.4-8.2) Albumin 3.7 g/dL (3.4-5.0) Albumin/Globulin Ratio 1.3 (1.0-1.7) Urine Collection Type Unknown Urine Color Yellow Urine Clarity Clear Urine pH 8.0 Urine Specific [place] 1.020 Urine Protein Negative mg/dL (NEG-TRACE) Urine Glucose (UA) Negative mg/dL (NEG) Urine Ketones (Stick) Negative mg/dL (NEG) Urine Blood Negative (NEG) Urine Nitrite Negative (NEG) Urine Bilirubin Negative (NEG) Urine Urobilinogen Dipstick 0.2 mg/dL (0.2 mg/dL) Urine Leukocyte Esterase Negative (NEG) Urine RBC 0 /HPF (0-2) Urine WBC Occ /HPF (0-4) Urine Squamous Epithelial Cells Few /LPF Urine Bacteria Few /HPF (0-FEW) Urine Mucus Slight /LPF Laboratory Tests Test 08/18/18 20:49 08/18/18 22:35 White Blood Count 7.2 x10^3/uL (4.0-11.0) Red Blood Count 4.38 x10^6/uL (3.50-5.40) Hemoglobin 13.7 g/dL (12.0-15.5) Hematocrit 40.5 % (36.0-47.0) Mean Corpuscular Volume 93 fL (79-100) Mean Corpuscular Hemoglobin 31 pg (25-35) Mean Corpuscular Hemoglobin Concent 34 g/dL (31-37) Red Cell Distribution Width 13.7 % (11.5-14.5) Platelet Count 281 x10^3/uL (140-400) Neutrophils (%) (Auto) 52 % (31-73) Lymphocytes (%) (Auto) 38 % (24-48) Monocytes (%) (Auto) 8 % (0-9) Eosinophils (%) (Auto) 2 % (0-3) Basophils (%) (Auto) 1 % (0-3) Neutrophils # (Auto) 3.7 x10^3uL (1.8-7.7) Lymphocytes # (Auto) 2.7 x10^3/uL (1.0-4.8) Monocytes # (Auto) 0.6 x10^3/uL (0.0-1.1) Eosinophils # (Auto) 0.1 x10^3/uL (0.0-0.7) Basophils # (Auto) 0.1 x10^3/uL (0.0-0.2) Prothrombin Time 12.8 SEC (11.7-14.0) Prothromb Time International Ratio 1.0 (0.8-1.1) Sodium Level 141 mmol/L (136-145) Potassium Level 3.3 mmol/L (3.5-5.1) Chloride Level 104 mmol/L (98-107) Carbon Dioxide Level 22 mmol/L (21-32) Anion Gap 15 (6-14) Blood Urea Nitrogen 10 mg/dL (7-20) Creatinine 1.0 mg/dL (0.6-1.0) Estimated GFR (Cockcroft-Gault) 56.6 BUN/Creatinine Ratio 10 (6-20) Glucose Level 100 mg/dL (70-99) Calcium Level 9.3 mg/dL (8.5-10.1) Total Bilirubin 0.6 mg/dL (0.2-1.0) Aspartate Amino Transf (AST/SGOT) 22 U/L (15-37) Alanine Aminotransferase (ALT/SGPT) 36 U/L (14-59) Alkaline Phosphatase 73 U/L (46-116) Troponin I Quantitative < 0.017 ng/mL (0.000-0.055) Total Protein 6.6 g/dL (6.4-8.2) Albumin 3.7 g/dL (3.4-5.0) Albumin/Globulin Ratio 1.3 (1.0-1.7) Urine Collection Type Unknown Urine Color Yellow Urine Clarity Clear Urine pH 8.0 Urine Specific [place] 1.020 Urine Protein Negative mg/dL (NEG-TRACE) Urine Glucose (UA) Negative mg/dL (NEG) Urine Ketones (Stick) Negative mg/dL (NEG) Urine Blood Negative (NEG) Urine Nitrite Negative (NEG) Urine Bilirubin Negative (NEG) Urine Urobilinogen Dipstick 0.2 mg/dL (0.2 mg/dL) Urine Leukocyte Esterase Negative (NEG) Urine RBC 0 /HPF (0-2) Urine WBC Occ /HPF (0-4) Urine Squamous Epithelial Cells Few /LPF Urine Bacteria Few /HPF (0-FEW) Urine Mucus Slight /LPF Brief Hospital Course Ms. Carrillo is a 58 old admit for Stroke symptoms with headache , hypokalemia, nausea, status migraine consulted Neurology. no CVA, MRI ordered and pending at DC Discharge Information Condition at Discharge: Improved Follow Up: Weeks Disposition/Orders: D/C to Home Scheduled Butalb/Acetaminophen/Caffeine (Xzefke-Rqugrztp-Xrjh 50-300-40) 1 Each Capsule, 1 EACH PO Q4HRS for migraine, (Reported) Entered as Reported by: Yaima Goncalves on 08/19/18924 Last Taken: 50-40 on Unknown Date & Time Last Action: Converted on 08/19/181008 by SVETLANA AGOSTO Fluoxetine Hcl (Fluoxetine Hcl) 40 Mg Capsule, 40 MG PO DAILY for , (Reported) Entered as Reported by: Yaima Goncalves on 08/19/18924 Last Taken: 40 on Unknown Date & Time Last Action: Converted on 08/19/181008 by SVETLANA AGOSTO Metoprolol Succinate (Metoprolol Succinate ( Xl )) 25 Mg Tab.er.24h, 25 MG PO DAILY for migrane, #5 then, increase to 50 mg Prescribed by: SVETLANA AGOSTO on 08/19/18 1020 Metoprolol Succinate (Toprol Xl) 50 Mg Tab.er.24h, 50 MG PO DAILY for migrane, #30 Ref 1 Prescribed by: SVETLANA AGOSTO on 08/19/18 1020 Scheduled PRN Ondansetron Hcl (Zofran) 4 Mg Tablet, 4 MG PO PRN TID PRN for NAUSEA/VOMITING, (Reported) Entered as Reported by: Yaima Goncalves on 08/19/18924 Last Taken: 4 on Unknown Date & Time Last Action: Converted on 08/19/18 1009 by SVETLANA AGOSTO Patient Instructions Patient Instructions > 30 min face to face SVETLANA AGOSTO MD Aug 19, 2018 10:25
[2018-08-19 10:48] VITALS: BP 97/41
[2018-08-19] MEDS ORDERED: FLUoxetine HCL 20 MG CAPSULE PO SCH (11:00)
--- NOTE | 2018-08-19 14:18 | RAD ---
MRI of the brain without contrast 08/19/2018 Clinical History: Slurred speech with left arm weakness and headache. Technique: Unenhanced T1-weighted sagittal and axial, T2-weighted axial and coronal and FLAIR, gradient echo and diffusion-weighted axial images of the brain were obtained. Findings: Comparison is made to patient's CTA of the head dated 08/18/2018. Some of the images are degraded by patient motion. There is mild generalized parenchymal atrophy. Patchy and a few small scattered areas of increased signal intensity are seen within the periventricular and subcortical white matter of both cerebral hemispheres on the FLAIR and T2-weighted images consistent with areas of very mild small vessel ischemic disease. No acute parenchymal abnormality is seen. No extra-axial fluid collection is seen. There is no MRI evidence of acute ischemia/infarction. Mild mucosal thickening in seen scattered throughout the paranasal sinuses. There are minimal bilateral mastoid effusions. Normal flow voids are seen within the major vascular structures surrounding the brain parenchyma. Impression: No acute parenchymal abnormality is seen. Electronically signed by: Srinivas Pope MD (08/19/2018 2:15 PM) [id number]
[2018-08-19 15:08] VITALS: BP 102/38
--- NOTE | 2018-08-19 15:13 | NUR ---
Discharge Note: NGUYEN SANFORD [address] Discharge instructions and discharge home medications reviewed with Patient and a copy given. All questions have been answered and understanding verbalized. Follow up appointment information given to patient. The following instructions and handouts were given: Stroke prevention and Metoprolol tablets Discontinued lines and drains: Peripheral IV intact. Patient discharged to Home or Self Care with Spouse via Ambulated
[2018-08-23] MEDS ORDERED: METOPROLOL SUCC 24HR ER 50 MG TAB.ER.24H. PO SCH (09:00)
== END 2018-08-19 15:15 | disposition home or self-care (01) | DRG 103 ==
LOC: ER 20:37 → 2 SOUTH 22:20
PROVIDERS: ADMIT Internal Medicine; ATTEND Internal Medicine
DX: G43.901 Migraine, unspecified, not intractable, with status migrainosus (principal); E87.6 Hypokalemia; R29.810 Facial weakness; F32.9 Major depressive disorder, single episode, unspecified; Z90.710 Acquired absence of both cervix and uterus; Z90.49 Acquired absence of other specified parts of digestive tract; Z88.8 Allergy status to other drugs, medicaments and biological substances
CPT/HCPCS: 36415; 70450; 70496; 70498; 70551; 80053; 81001; 84484; 85025; 85610; 93005; 96374; 96375; J0780; J1200; Q9967; 92610; 99285-25

== ENCOUNTER 2021-08-05 16:33 | Emergency (ER) | payer BC, OTHER ==
[~2021-08-05] VITALS: Ht 167.6 cm; Wt 77.3 kg
[~2021-08-05 16:33] MED LIST changes: +BUTA1CAP57 PO; +FLUO40CA2 PO; +METO-239 PO; +METO50TA4 PO
[2021-08-05] MEDS ORDERED: CONTRAST GIVEN. MC PRN (17:30)
[2021-08-05] MEDS ORDERED: IOHEXOL 350 MG/ML 100 ML VIAL. IV ONE (17:30)
[2021-08-05 17:37] LABS: BASO % 1 % (0-3); EOS # 0.2 x10^3/uL (0.0-0.7); EOS % 3 % (0-3); HEMATOCRIT 40.3 % (36.0-47.0); HEMOGLOBIN 13.8 g/dL (12.0-15.5); LYMPH # 2.3 x10^3/uL (1.0-4.8); LYMPH % 33 % (24-48); MEAN CORPUSCULAR HEMOGLOBIN 32 pg (25-35); MEAN CORPUSCULAR HGB CONC 34 g/dL (31-37); MEAN CORPUSCULAR VOLUME 93 fL (79-100); MONO # 0.8 x10^3/uL (0.0-1.1); MONO % 11 % (0-9); NEUT # 3.8 x10^3/uL (1.8-7.7); NEUT % 53 % (31-73); PLATELET COUNT 283 x10^3/uL (140-400); RED BLOOD COUNT 4.35 x10^6/uL (3.50-5.40); RED CELL DISTRIBUTION WIDTH 13.5 % (11.5-14.5); WHITE BLOOD COUNT 7.2 x10^3/uL (4.0-11.0)
--- NOTE | 2021-08-05 17:38 | RAD ---
CT Head W/O Contrast: History: Reason: Left facial numbness, left neck pain / Spl. Instructions: / History: Left facial n umbness left facial pain Comparison: none Axial images were obtained without contrast. The alejandro and white matter appears normal and symmetrical for the patients age. There is no mass effe ct, extraaxial fluid collections or hydrocephalus. There is no gross bleed. There is no focal loss of alejandro-white matter distinction to suggest acute ischemia, i.e. stroke. Impression: No acute findings. PQRS Compliance Statement: One or more of the following individualized dose reduction techniques were utilized for this examinat ion: 1. Automated exposure control 2. Adjustment of the mA and/or kV according to patient size 3. Use of iterative reconstruction technique FOR INTERNAL CODING PURPOSES Critical result: Findings discussed with the ED nurse Sharlene at 08/05/2021 5:33 PM. RESULT CODE: (C) End of impression CTA head with and without History: TIA Technique: Axial images were obtained of the head before and after the intravenous administration of 75 mL of Omnipaque 350 IV contrast. Multiplanar reconstruction was performed on an independent work station including 3D MIP imaging and 3D angiographic imaging. Comparison: none CTA head with and without contrast. Findings: Brain: The alejandro and white matter appears symmetrical. There is no mass effect, extra-axial fluid co llections or hydrocephalus. There is no gross bleed. Distal carotid arteries: normal caliber Vertebral basilar system normal Major cerebral arteries: normal Impression: no acute findings end impression PQRS Compliance Statement: One or more of the following individualized dose reduction techniques were utilized for this examinat ion: 1. Automated exposure control 2. Adjustment of the mA and/or kV according to patient size 3. Use of iterative reconstruction technique FOR INTERNAL CODING PURPOSES Critical result: Findings discussed with the emergency department nurse Sharlene at 08/05/2021 5:33 PM. RESULT CODE: (C) Electronically signed by: Rowdy Rajan III, MD (08/05/2021 5:36 PM) [facility]
[2021-08-05 17:44] LABS: PROTHROMBIN TIME PATIENT 13.2 SEC (11.7-14.0)
[2021-08-05 17:47] LABS: CREATININE 1.1 mg/dL (0.6-1.0); GFR 50.2; POTASSIUM 4.1 mmol/L (3.5-5.1)
[2021-08-05 17:53] LABS: ALBUMIN 3.8 g/dL (3.4-5.0); TOTAL BILIRUBIN 0.9 mg/dL (0.2-1.0); TOTAL PROTEIN 7.6 g/dL (6.4-8.2)
[2021-08-05] MEDS ORDERED: PROCHLORPERAZINE 10 MG/2 ML VIAL. IV ONE (18:00)
[2021-08-05] MEDS ORDERED: KETOROLAC 30 MG/ML VIAL. IVP ONE (18:00)
[2021-08-05] MEDS ORDERED: IV NORMAL SALINE 1000ML BAG 1,000 ML IV ONE (18:00)
[2021-08-05] MEDS ORDERED: carBAMazepine 200 MG TABLET PO ONE (18:00)
[2021-08-05] MEDS ORDERED: diphenhydrAMINE 50 MG/ML VIAL IVP ONE (18:00)
--- NOTE | 2021-08-05 18:08 | RAD ---
AP chest x-ray HISTORY: Code stroke. FINDINGS: The heart size is normal. The mediastinal silhouette is normal. No pneumothorax, pulmonary opacities or pleural effusions. The bones are normal. IMPRESSION: No acute process. Electronically signed by: Angel Richard MD (08/05/2021 6:05 PM) [facility]
--- NOTE | 2021-08-05 18:36 | PHYS DOC ---
Past Medical History Past Medical History: Depression, Migraines Past Surgical History: Appendectomy, Cholecystectomy, Hysterectomy, Tonsillecto my, Other Additional Past Surgical Histo: Left knee, back, right foot Smoking Status: Unknown if ever smoked Alcohol Use: None Drug Use: None General Adult EDM: Chief Complaint: NECK PAIN HPI: HPI: 60-year-old female, past medical history appendectomy, cholecystectomy, hysterectomy, tonsillectomy, GERD, migraines, TIA, presents with sudden onset left neck pain at 4: 10 PM, approximately 30 minutes prior to ED presentation, with associated difficulty swallowing and numbness radiating to the left cheek. No trauma. No recent viral symptoms or history of illness. Was in her usual state of health prior. No dysarthria or aphasia. Endorses dizziness. No chest pain, shortness of breath, palpitations, abdominal pain, urinary complaints or changes in bowel habits. No new medications. No alcohol or illicit drug use. Denies NOLEN or vision changes. States this does not feel like her usual migraines. Review of Systems: Review of Systems: Constitutional: Denies fever or chills. [] Eyes: Denies change in visual acuity. [] HENT: +L neck pain extending into L facial numbness, Denies nasal congestion or sore throat. [] Respiratory: Denies cough or shortness of breath. [] Cardiovascular: Denies chest pain or edema. [] GI: Denies abdominal pain, nausea, vomiting, bloody stools or diarrhea. [] : Denies dysuria. [] Musculoskeletal: Denies back pain or joint pain. [] Integument: Denies rash. [] Neurologic: Denies headache, focal weakness or sensory changes. [] Endocrine: Denies polyuria or polydipsia. [] Lymphatic: Denies swollen glands. [] Psychiatric: Denies depression or anxiety. [] Heart Score: C/O Chest Pain: No Risk Factors: Risk Factors: DM, Current or recent (<one month) smoker, HTN, HLP, family history of CAD, obesity. Risk Scores: Score 0 - 3: 2.5% MACE over next 6 weeks - Discharge Home Score 4 - 6: 20.3% MACE over next 6 weeks - Admit for Clinical Observation Score 7 - 10: 72.7% MACE over next 6 weeks - Early Invasive Strategies Current Medications: Current Medications Medications (Trade) Dose Ordered Sig/Kuldeep Start Time Stop Time Status Last Admin Dose Admin Carbamazepine (TEGretol) 200 mg 1X ONCE 08/05/21 18:00 08/05/21 18:01 DC 08/05/21 18:15 200 MG Diphenhydramine HCl (Benadryl) 25 mg 1X ONCE 08/05/21 18:00 08/05/21 18:01 DC 08/05/21 18:15 25 MG Info (CONTRAST GIVEN -- Rx MONITORING) 1 each PRN DAILY PRN 08/05/21 17:30 08/07/21 17:29 Iohexol (Omnipaque 350 Mg/ml) 75 ml 1X ONCE 08/05/21 17:30 08/05/21 17:31 DC 08/05/21 17:37 75 ML Ketorolac Tromethamine (Toradol 30mg Vial) 30 mg 1X ONCE 08/05/21 18:00 08/05/21 18:01 DC 08/05/21 18:15 30 MG Prochlorperazine Edisylate (Compazine) 10 mg 1X ONCE 08/05/21 18:00 08/05/21 18:01 DC 08/05/21 18:16 10 MG Sodium Chloride 1,000 ml @ 999 mls/hr 1X ONCE 08/05/21 18:00 08/05/21 19:00 08/05/21 18:15 999 MLS/HR Allergies: Allergies: Allergies Coded Allergies Type Severity Reaction Last Updated Verified meperidine Allergy Severe Anaphylaxis 08/18/18 Yes gabapentin Allergy Intermediate Hives 08/18/18 Yes Physical Exam: PE: Constitutional: Well developed, well nourished, no acute distress, non-toxic appearance. [] HENT: Normocephalic, atraumatic, bilateral external ears normal, oropharynx moist, no oral exudates, nose normal. Bilateral TM's unremarakble. [] Eyes: PERRLA, EOMI, conjunctiva normal, no discharge. [] Neck: Normal range of motion, no tenderness, supple, no stridor. No mass. No lymphadenopathy.[] Cardiovascular:Heart rate regular rhythm, no murmur [] Lungs & Thorax: Bilateral breath sounds clear to auscultation [] Abdomen: Bowel sounds normal, soft, no tenderness, no masses, no pulsatile masses. [] Skin: Warm, dry, no erythema, no rash. [] Back: No tenderness, no CVA tenderness. [] Extremities: No tenderness, no cyanosis, no clubbing, ROM intact, no edema. [] Neurologic: Alert and oriented X 3, no droop. Subjective numbness of L cheek. GCS 15, NIHSS 0. normal motor function, grossly normal sensory function, no focal deficits noted. [] Psychologic: Affect normal, judgement normal, mood normal. [] Current Patient Data: Labs: Laboratory Tests Test 08/05/21 16:57 08/05/21 17:04 Glucose (Fingerstick) 94 mg/dL (70-99) White Blood Count 7.2 x10^3/uL (4.0-11.0) Red Blood Count 4.35 x10^6/uL (3.50-5.40) Hemoglobin 13.8 g/dL (12.0-15.5) Hematocrit 40.3 % (36.0-47.0) Mean Corpuscular Volume 93 fL (79-100) Mean Corpuscular Hemoglobin 32 pg (25-35) Mean Corpuscular Hemoglobin Concent 34 g/dL (31-37) Red Cell Distribution Width 13.5 % (11.5-14.5) Platelet Count 283 x10^3/uL (140-400) Neutrophils (%) (Auto) 53 % (31-73) Lymphocytes (%) (Auto) 33 % (24-48) Monocytes (%) (Auto) 11 % (0-9) H Eosinophils (%) (Auto) 3 % (0-3) Basophils (%) (Auto) 1 % (0-3) Neutrophils # (Auto) 3.8 x10^3/uL (1.8-7.7) Lymphocytes # (Auto) 2.3 x10^3/uL (1.0-4.8) Monocytes # (Auto) 0.8 x10^3/uL (0.0-1.1) Eosinophils # (Auto) 0.2 x10^3/uL (0.0-0.7) Basophils # (Auto) 0.0 x10^3/uL (0.0-0.2) Prothrombin Time 13.2 SEC (11.7-14.0) Prothrombin Time INR 1.0 (0.8-1.1) Activated Partial Thromboplast Time 26 SEC (24-38) Sodium Level 138 mmol/L (136-145) Potassium Level 4.1 mmol/L (3.5-5.1) Chloride Level 107 mmol/L (98-107) Carbon Dioxide Level 23 mmol/L (21-32) Anion Gap 8 (6-14) Blood Urea Nitrogen 15 mg/dL (7-20) Creatinine 1.1 mg/dL (0.6-1.0) H Estimated GFR (Cockcroft-Gault) 50.2 BUN/Creatinine Ratio 14 (6-20) Glucose Level 96 mg/dL (70-99) Calcium Level 9.0 mg/dL (8.5-10.1) Magnesium Level 2.3 mg/dL (1.8-2.4) Total Bilirubin 0.9 mg/dL (0.2-1.0) Aspartate Amino Transferase (AST) 30 U/L (15-37) Alanine Aminotransferase (ALT) 40 U/L (14-59) Alkaline Phosphatase 99 U/L (46-116) Troponin I High Sensitivity 4 ng/L (4-50) C-Reactive Protein, Quantitative 6.8 mg/L (0-3.3) H Total Protein 7.6 g/dL (6.4-8.2) Albumin 3.8 g/dL (3.4-5.0) Albumin/Globulin Ratio 1.0 (1.0-1.7) Laboratory Tests 08/05/21 17:04 Laboratory Tests 08/05/21 17:04 Vital Signs: Vital Signs Date Time Temp Pulse Resp B/P (MAP) Pulse Ox O2 Delivery O2 Flow Rate FiO2 08/05/21 16:35 98.0 63 18 120/58 (78) 98 Room Air 98.0 EKG: EKG: [] Radiology/Procedures: Radiology/Procedures: [] Course & Med Decision Making: Course & Med Decision Making Pertinent Labs and Imaging studies reviewed. (See chart for details) Additional Social History: PMD from non-affiliated facility. Patient Lives at home. Family History: Non-pertinent to today's complaint. Nursing Notes Reviewed Previous Medical Records requested via [facility] Web: Reviewed by me. EMERGENT LABS AND DIAGNOSTIC STUDIES: Results were reviewed and interpreted by me as below 12-lead EKG Interpretation by Linh Vidal MD: Normal Sinus Rhythm at 53 beats per minute Left axis Normal intervals No ectopy No PVC T wave inversion in lead III and anterior leads, nonspecific, no obvious ST ischemic changes Overall impression is abnormal EKG PROCEDURE: PORTABLE CHEST 1V IMPRESSION: No acute process. PROCEDURE: CTA HEAD/NECK - CODE STROKE Impression: No acute findings. PROCEDURE: CT CODE STROKE HEAD WO CT Head W/O Contrast: Impression: No acute findings. EMERGENCY DEPARTMENT COURSE/ MEDICAL DECISION MAKING: The patient was placed on a scrape gatherer, continuous pulse oximetry and was given supplemental oxygen. I examined the patient, evaluated and addressed patient's chief complaint. BGM wnl. Stroke code called r/o stroke, ICH, carotid dissection. Possibly trigeminal neuralgia vs complex migraine. Follow up inflammatory markers as well. r/o metabolic derangements and infectious etiology. r/o acs Ct Head noncontrast and Angio Head/neck are negative. Upon reassessment, Sx persistent with 9/10 L sided neck pain with facial numbness now with L sided headache. s/p migraine cocktail and also carbamezapine for possible trigeminal neuralgia. Plan for admission tele for stroke workup. After evaluation, I believe the patient is at risk for decompensation and will require admission. However, patients abnormal vital signs/labs are not consistent with sepsis, and the patient does not meet the criteria for sepsis at this time. I discussed the patient's case with Dr. Acosta, who expressed understanding and agreed to admit the patient. I suspect the patient will be hospitalized for at least 2 midnights. DIAGNOSTIC IMPRESSION: 1. L neck pain 2. L facial numbness 3. difficulty swallowing DISPOSITION: Disposition: Admit to tele under the service of Condition: Guarded Dragon Disclaimer: Dragon Disclaimer: This electronic medical record was generated, in whole or in part, using a voice recognition dictation system. Departure Departure Impression: Primary Impression: Neck pain on left side Additional Impression: Left facial numbness Disposition: ADMITTED INPATIENT Condition: STABLE Referrals: JELANI ONEAL MD (PCP) BATSHEVA VIDAL MD August 05, 2021 18:36
[2021-08-05 19:12] VITALS: BP 110/53
--- NOTE | 2021-08-07 01:16 | EKG ---
[facility] [address] [place] [address] Test Date: 2021-08-05 Test Time: 18:45:05 Pat Name: NGUYEN SANFORD Department: Room: Gender: F Numerical Control Operator: : [id number] Requested By: BATSHEVA VIDAL Order Number: [id number] Reading MD: Kranthi Strong Measurements Intervals [place] Rate: 53 P: 27 NV: 166 QRS: -10 QRSD: 82 T: 9 QT: 508 QTc: 484 Interpretive Statements SINUS RHYTHM LEFTWARD AXIS PROLONGED QT NON SPECIFIC ST-T WAVE CHANGES Electronically Signed On 08-08-2021 11:19:35 CDT by Kranthi Strong
== END 2021-08-05 19:20 | disposition admitted as inpatient to this hospital (09) ==
LOC: ER 16:33
DX: M54.2 Cervicalgia (principal); R20.0 Anesthesia of skin; R13.10 Dysphagia, unspecified; G43.909 Migraine, unspecified, not intractable, without status migrainosus; K21.9 Gastro-esophageal reflux disease without esophagitis; Z86.73 Personal history of transient ischemic attack (TIA), and cerebral infarction without residual deficits
CPT/HCPCS: 36415; 70450; 70496; 70498; 71045; 80053; 82962; 83735; 84484; 85025; 85610; 85651; 85730; 86140; 93005; 96361; 96374; 96375; 99285; J0780; J1200; J1885; J7030; Q9967